=== PATIENT | male | born 1980 | race Two or more races ===

== ENCOUNTER 2017-12-26 22:14 | Emergency (ER) | payer SELFPAY ==
[~2017-12-26] VITALS: Ht 190.5 cm; Wt 116.0 kg
[2017-12-26 22:15] VITALS: BP 143/99
[2017-12-26] MEDS ORDERED: ONDANSETRON 2MG/ML, 2ML IVPush ONE (22:30)
[2017-12-26] MEDS ORDERED: SODIUM CHLORIDE FLUSH 10ML SYR IVF ONE (22:30)
== END 2017-12-27 00:49 | disposition left against medical advice (07) ==
LOC: ED 23:59
DX: R10.11 Right upper quadrant pain (principal)
CPT/HCPCS: 76700; 99284